=== PATIENT | male | born 1960 ===

== ENCOUNTER → 2022-08-15 | Emergency (ER) | payer BC ==
[~2022-08-15] VITALS: Ht 182.9 cm; Wt 84.1 kg
[~2022-08-15] MED LIST: LEVETIRACETAM IV ONE; LIDOCAINE 2% 5 ML JELLY.ML. tube MM ONE; LIDOcaine 2% jelly 6ml syringe ***for topical use only ONE; MIDAZolam 5mg/ml 2ml vial IV ONE; NORMAL SALINE IV ONE; etomidate 2mg/ml inj. ONE; labetalol injection 250 MG in normal saline 250ml IV soln 200 ML IV PRN; levetiracetam inj 500 MG in normal saline 1000ml 100 ML IV ONE; mannitol 20% 500ml IV soln 500 ML IV ONE; niCARDipine-NS 40mg/200ml IVPB 200 ML IV SCH; ondansetron/PF 4mg/2ml inj IV ONE; propofol 1000mg/100ml bottle 100 ML IV PRN; rocuronium 10mg/ml inj IV ONE; succinylcholine 20mg/ml inj IV ONE
--- NOTE | 2022-08-15 11:00 | NUR ---
Pt just left the room going to CT scan
[2022-08-15 11:28] LABS: BASOPHILS # (AUTO) 0.1 X10'3 (0-0.2); BASOPHILS % (AUTO) 0.6 % (0-1); EOSINOPHILS % (AUTO) 0.3 % (0-6); HEMATOCRIT 44.3 % (42.0-52.0); HEMOGLOBIN 15.6 g/dl (14.0-17.9); LYMPHOCYTES # (AUTO) 0.9 X10'3 (1.1-4.8); LYMPHOCYTES % (AUTO) 7.8 % (21-51); MEAN CORPUSCULAR HEMOGLOBIN 37.1 PG (27.0-31.0); MEAN CORPUSCULAR HGB CONC 35.2 g/dL (33.0-36.5); MEAN CORPUSCULAR VOLUME 105.4 FL (78-98); MEAN PLATELET VOLUME 7.8 FL (7.4-10.4); MONOCYTES # (AUTO) 0.7 X10'3 (0-0.9); MONOCYTES % (AUTO) 6.1 % (2-12); NEUTROPHILS # (AUTO) 9.8 X10'3 (1.8-7.7); NEUTROPHILS % (AUTO) 85.2 % (42-75); PLATELET COUNT 141 X10'3 (140-440); RED BLOOD COUNT 4.21 X10'6 (4.70-6.10); RED CELL DISTRIBUTION WIDTH 13.9 % (11.5-14.5); WHITE BLOOD COUNT 11.5 X10'3 (4.5-11.0)
[2022-08-15 11:43] LABS: ALANINE AMINOTRANSFERASE 169 U/L (12-78); ALBUMIN 4.5 G/DL (3.4-5.0); ALBUMIN/GLOBULIN RATIO 1.3 (1.1-1.5); ALKALINE PHOSPHATASE 210 IU/L (46-116); ANION GAP 15 (8-16); ASPARTATE AMINO TRANSFERASE 310 U/L (10-37); BILIRUBIN,TOTAL 2.8 MG/DL (0.1-1.0); BLOOD UREA NITROGEN 12 MG/DL (7-18); BUN/CREATININE RATIO 12.5 (5.4-32.0); CALCIUM 9.8 MG/DL (8.5-10.1); CHLORIDE 91 MMOL/L (99-107); CREATININE 0.96 MG/DL (0.60-1.10); ETHANOL < 0.010 GM/DL (0.0-0.010); GLUCOSE 234 MG/DL (70-104); POTASSIUM 3.7 MMOL/L (3.5-5.1); SODIUM 130 MMOL/L (135-145); TOTAL CARBON DIOXIDE 23.7 MMOL/L (24-32); TOTAL PROTEIN 8.1 G/DL (6.4-8.2); eGFR 79 ML/MIN
--- NOTE | 2022-08-15 11:55 | NUR ---
Report given to EMS at bedside. Pt tranferring to [facility] via ambulance. Pt currently intubated hooked to mechanical ventilator
[2022-08-15 11:57] VITALS: BP 238/152
--- NOTE | 2022-08-15 12:09 | NUR ---
PT LEAVING CODE 3 TO [facility] WITH RN MCKENZIE
--- NOTE | 2022-08-15 19:45 | NUR ---
Late entry notes: 1110: Pt had vomited and with coffee ground emesis. Pt repositioned and suctioned and with maintained patent airway. Pt then started clenching jaw and grinding teeth, MD Ferreira updated and MD placing orders. 1115: Pt continues to clench jaw and now is starting to flex upper extremities inward to core of body. MD Ferreira updated on pt status. Pt to be intubated, RT paged. 1141: Lidocaine administered per VO at [facility] by Dr. Ferreira. 1151: Etamodate 20mg IV followed by Succs 100mg IV administered. 1153: Pt intubated, placement verified by lungsounds and + color change of CO2 indicator. 1155: Keppra 500mg IV bolus initiated 1205: Manitol 20% in 500ml solution started at 340.008ml/hr 1207: NiCardipine gtt started at 5mg/hr 1208: Departed with pt for transport to [facility].
== END | disposition short-term general hospital (02) ==
LOC: ER 10:40
DX: S06.4XAA Epidural hemorrhage with loss of consciousness status unknown, initial encounter (principal); R55 Syncope and collapse; I95.9 Hypotension, unspecified; X58.XXXA Exposure to other specified factors, initial encounter; Y93.89 Activity, other specified; Y92.89 Other specified places as the place of occurrence of the external cause; Y99.8 Other external cause status
CPT/HCPCS: 31500; 36415; 70450; 71045; 80053; 80320; 85025; 94002; 99291; 99292; J0330; J3490; J7030